=== PATIENT | female | born 1980 | race Caucasian/White ===

== ENCOUNTER → 2017-11-25 | Outpatient (CLI) | payer BC ==
[~2017-11-25] MED LIST: CLON.5 PO; EFFE150C PO; HYDR-3288 PO; LAMO150 PO; METR-1 PO
[2017-11-25 11:28] LABS: AUTOMATED NEUTROPHIL # 9.1 TH/MM3 (1.8-7.7); BASOPHIL % 0.2 % (0.0-2.0); EOSINOPHIL # 0.3 TH/MM3 (0-0.4); HEMATOCRIT 39.2 % (35.0-46.0); HEMOGLOBIN 12.8 GM/DL (11.6-15.3); LYMPH % 31.8 % (9.0-44.0); LYMPHOCYTE # 4.7 TH/MM3 (1.0-4.8); MEAN CELL VOLUME 86.3 FL (80.0-100.0); MEAN CORPUSCULAR HEMOGLOBIN 28.2 PG (27.0-34.0); MEAN CORPUSCULAR HGB CONC 32.7 % (32.0-36.0); MEAN PLATELET VOLUME 6.6 FL (7.0-11.0); MONO % 4.7 % (0.0-8.0); MONOCYTE # 0.7 TH/MM3 (0-0.9); NEUT % 61.3 % (16.0-70.0); PLATELET COUNT 438 TH/MM3 (150-450); RED BLOOD COUNT 4.54 MIL/MM3 (4.00-5.30); RED CELL DISTRIBUTION WIDTH 14.1 % (11.6-17.2); WHITE BLOOD COUNT 14.9 TH/MM3 (4.0-11.0)
[2017-11-25 11:37] LABS: BILIRUBIN, URINE NEG (NEG); BLOOD, URINE TRACE (NEG); GLUCOSE,URINE NEG (NEG); KETONE, URINE TRACE mg/dL (NEG); MUCUS URINE FEW /lpf (OCC); NITRITE,URINE NEG (NEG); PH, URINE 6.5 (5.0-8.5); SQUAMOUS EPITHELIAL CELL URINE 21 /hpf (0-5); URINE COLOR YELLOW (YELLW/STRAW); URINE LEUKOCYTE ESTERASE TRACE (NEG)
[2017-11-25 11:44] LABS: BACTERIA, URINE OCC /hpf
[2017-11-25 12:11] LABS: BICARBONATE 27.4 MEQ/L (21.0-32.0)
== END ==
LOC: CPRE 10:42
PROVIDERS: ATTEND Obstetrics & Gynecology
DX: Z01.812 Encounter for preprocedural laboratory examination (principal); R10.2 Pelvic and perineal pain; N80.9 Endometriosis, unspecified
CPT/HCPCS: 36415; 80051; 81001; 85025

== ENCOUNTER → 2017-11-30 | Day surgery (SDC) | payer BC ==
[~2017-11-30] VITALS: Ht 172.7 cm; Wt 74.5 kg
[~2017-11-30] MED LIST changes: +*LABETALOL HCL 100 MG/20 ML VIAL PERIprocedural Use ONLY ONE; +*morphine SULFATE 8 MG/ML PERIprocedure ONLY ONE; +ACETAMINOPHEN 1000 MG/100 ML 100 ML IV ONE; +APREPITANT 40 MG CAP ONE; +CHLORHEXIDINE GLUCONATE 2 % 1 PACK (2 CLOTHS) TOPICAL PRN; +DEXAMETHASONE SOD PHOS 4 MG/ML VIAL IV ONE; +DO NOT ADM ANY ANTICOAGULANT DRUGS PRN; +FAMOTIDINE 20 MG/2 ML VIAL ONE; +GLYCOPYRROLATE 1 MG/5 ML SYRINGE IV PUSH ONE; +HYDROmorphone HCL PF 2 MG/ML VIAL IV PUSH PRN; +IBUPROFEN 600 MG TAB PO PRN; +INSULIN HUMAN REGULAR 1,000 UNITS/10 ML VIAL SQ PRN; +KETOROLAC TROMETHAMINE 30 MG/ML (IVP) VIAL IV PUSH ONE; +KETOROLAC TROMETHAMINE 30 MG/ML (IVP) VIAL IVP PRN; +LACTATED RINGER'S 1000 ML INJ 1,000 ML IV SCH; +LACTATED RINGER'S 1000 ML IV PRN; +LORazepam 0.5 MG TAB PO PRN; +METOPROLOL TARTRATE 25 MG TAB PO PRN; -METR-1 PO; +MIDAZOLAM HCL 2 MG/2 ML VIAL ONE; +NEOSTIGMINE 5 MG/5 ML SYRINGE IV PUSH ONE; +ONDANSETRON HCL 4 MG/2 ML VIAL IV ONE; +ONDANSETRON HCL 4 MG/2 ML VIAL ONE; +PHENYLEPH/NS 1000 MCG/10 ML SYR IV ONE; +POVIDONE IODINE 5% (ANTISEPSIS KIT) 4 APPLICATIONS EACH NARE PRN; +PROMETHAZINE INJ 25 MG/ML VIAL IM PRN; +PROPOFOL 200 MG/20 ML AMP IV ONE; +ROCURONIUM INJ 50 MG/5 ML SYRINGE IV PUSH ONE; +SODIUM CHLORID 0.9% 500 ML IV PRN; +SODIUM CHLORIDE 0.9% 10 ML VIAL IV ONE; +SODIUM CHLORIDE 0.9% FLUSH 10 ML FLUSH IV FLUSH PRN; +SODIUM CHLORIDE 0.9% FLUSH 10 ML FLUSH IV FLUSH SCH; +ceFAZolin 2 GM/DEX PREMIX 50 ML IV SCH; +diphenhydrAMINE HCL 25 MG CAP PO PRN; +oxyCODONE/ACETAMINOPHEN 5 MG/325 MG TAB PO PRN
--- NOTE | 2017-11-30 10:33 | MP ---
cc: Scooby Maria MD DATE OF OPERATION: 11/30/2017 DATE OF PROCEDURE: 11/30/2017. PREOPERATIVE DIAGNOSES: The patient with chronic pelvic pain, dysmenorrhea, history of endometriosis. PROCEDURE PERFORMED: Operative laparoscopy with robotic-assisted total laparoscopic hysterectomy, bilateral salpingectomy, left oophorectomy, lysis of adhesions. POSTOPERATIVE DIAGNOSIS. Chronic pelvic pain, dysmenorrhea, history of endometriosis. SURGEON: Scooby Maria MD ANESTHESIA: General by endotracheal intubation. ESTIMATED BLOOD LOSS: Less than 50 mL. DRAINS: Ward to gravity. OPERATIVE FINDINGS: The patient had a normal-sized uterus that was mobile. There was evidence of peritoneal implants over the anterior peritoneal surface and in the cul-de-sac and under the left uterosacral ligament. The left ovary was adherent to the sidewall. The right ovary was normal in size, shape and appearance and free and devoid of any surface lesions. INDICATIONS FOR PROCEDURE: The patient with chronic debilitating pelvic pain secondary to endometriosis, failed conservative management. After discussion of therapeutic options, the patient elected for hysterectomy, also intraoperative evaluation of the left ovary. The patient's pain is predominantly on the left side and the patient elected to have her left ovary removed at the time of her procedure. The patient received Ancef 2 grams prophylactically. PROCEDURE DESCRIPTION: The patient was taken to the operating room under stable condition, underwent general anesthesia with endotracheal intubation. She was carefully positioned in dorsal lithotomy position using Primitivo stirrups on the lower extremities. She had sequentials placed for VTE prophylaxis. She was prepped and draped. Timeout was conducted and agreed on by all present in the room. A Ward catheter was inserted by sterile technique. The patient was then examined. The cervix was small. A medium VCare device was utilized and inserted through the cervical os without difficulty. The cervix was dilated to accommodate the VCare without complication or perforation. After securing the VCare, all instruments were removed and gloves were changed. The abdomen was examined. The patient had a large tattoo below the umbilicus extending to the pubic symphysis and to each right and left flank. Otherwise, no discernible pathology or lesions were noted. The umbilical port site was chosen first injecting with 0.25% plain Marcaine and then using a #5 trocar placed through a small incision with direct entry into the peritoneal cavity without complication. Insufflation of CO2 was conducted at low pressure and then the patient was placed in Trendelenburg positioning to visualize the pelvic anatomy. The laparoscopic ports were placed using 8 mm da Jacob ports, placing them strategically to avoid interruption of the tattoo. These were placed under direct vision, again injecting the incision site with 0.25% plain Marcaine. The umbilical port was then traded to a #12 camera port. The da Jacob patient's cart was side-docked with the #2 arm on the left and the #1 and #3 on the right. Monopolar scissors were attached to two and a bipolar fenestrated grasper and a ProGrasp were placed in the #1 and #3 respectively. Good articulation was noted. There were no collisions. Attention was then directed to the surgeon's cart where visualization of the pelvic anatomy was done. After confirming abnormalities of the left ovary and cul-de-sac, decision was to proceed with removal of the left tube and ovary. The round ligament was divided on the left, allowing dissection of the retroperitoneal space and then opening the broad ligament to the contralateral side over the bladder reflection and then laterally to evaluate the infundibulopelvic vessels. The ureter was easily visualized and skeletonized out of the operative field. The infundibulopelvic vessels were then secured hemostatically. Pedicle was cut and then dissection of the uterine artery and vein on the left side was accomplished without difficulty. Good hemostasis was secured. After securing the pedicle the contralateral side was then dissected and then decision was to leave the right ovary. The fallopian tube was removed on the right, cauterizing the mesentery appropriately to control any bleeding and then this allowed removal of the fallopian tube intact with the uterus. The uteroovarian pedicle was skeletonized, ligated opening the broad ligament leaf posteriorly and anteriorly, identifying the uterine artery and vein on the right was accomplished without difficulty and then the pedicle secured and made hemostatic with bipolar energy. Once the vessels were secured, a colpotomy incision was made posteriorly allowing removal of the cervix with the uterus after completing the circumferential colpotomy incision. Good result was noted. No active bleeding or hematoma was incurred. The uterus was then retrieved and removed through the vaginal opening by the hr assistant and this included both fallopian tubes, left ovary and cervix with the uterus. The vaginal cuff was then closed with a number 1 Stratafix suture, which was introduced through the vaginal opening. The #2 arm was traded to a Miguel-Cut suture needle concrete mixer truck driver and then closure of the cuff was accomplished without complication with good integrity demonstrated by the hr assistant after placing a sponge stick vaginally and providing pressure in a cephalad direction. Once this was complete, the suture needle was trimmed flush with the peritoneum and the suture needle was secured. In addition to placement of the #1 Stratafix suture, a 2-0 Vicryl suture was introduced, securing the right ovary to the sidewall. The ovary had a very prominent pedicle and concerns for torsion were noted. The ovary was secured to the round ligament with a simple [id number] suture of the 2-0 Vicryl with good result. No bleeding, no hematoma was incurred. After trimming the suture ends and securing the needle, observation of the dissection sites were dry and at this point, the da Jacob patient's cart was undocked. Straight laparoscopy was used to retrieve the suture needles and then irrigation of the pelvis was accomplished without difficulty. Copious irrigation was used to clean the pelvis. Observation off pressure revealed no active bleeding or hematoma. Both ureters were visualized throughout and peristalsing normally, draining clear urine into the Ward bag. After completion of the procedure, the umbilical port site was closed using a CrossBow with a #1 Vicryl suture, closing the fascia with good integrity. At the completion of the case, the pneumoperitoneum was decompressed under direct vision. The trocars were all removed without complication. Additional 0.25% plain Marcaine was injected into all incision sites for postoperative pain management. A 4-0 Monocryl suture was used to close the skin incisions with subcuticular method and then Steri-Strips and Band-Aids were placed over the incision. At the completion of the case, final counts were correct. The patient was stable. She was taken to the recovery room on room air. MD RICH Brian/NILES , 10:00 AM , 10:31 AM
[2017-11-30 11:45] VITALS: BP 104/65; PULSE 98; RESP 16; TEMP 96.7; O2SAT 97
== END | disposition home or self-care (01) ==
LOC: HSDC 05:36 → EDUNIT# 07:30
PROVIDERS: ATTEND Obstetrics & Gynecology
DX: N80.0 Endometriosis of uterus (principal); N94.6 Dysmenorrhea, unspecified; N83.12 Corpus luteum cyst of left ovary; N83.8 Other noninflammatory disorders of ovary, fallopian tube and broad ligament; R10.2 Pelvic and perineal pain; G89.29 Other chronic pain
CPT/HCPCS: 00840; 58552; 88307; J0131; J0690; J1100; J1885; J2250; J2270; J2370; J2405; J2710; J3010; J7120; J8501

== ENCOUNTER 2017-12-03 06:40 | Inpatient (IN) | payer BC ==
[2017-12-03] VITALS (7 sets, daily range): BP systolic 96–137; BP diastolic 51–81; PULSE 90–115; RESP 17–20; TEMP 97.3–99.2; O2SAT 96–99
[~2017-12-03 06:40] MED LIST changes: -*LABETALOL HCL 100 MG/20 ML VIAL PERIprocedural Use ONLY ONE; -*morphine SULFATE 8 MG/ML PERIprocedure ONLY ONE; -ACETAMINOPHEN 1000 MG/100 ML 100 ML IV ONE; -APREPITANT 40 MG CAP ONE; -CHLORHEXIDINE GLUCONATE 2 % 1 PACK (2 CLOTHS) TOPICAL PRN; -DEXAMETHASONE SOD PHOS 4 MG/ML VIAL IV ONE; -DO NOT ADM ANY ANTICOAGULANT DRUGS PRN; -FAMOTIDINE 20 MG/2 ML VIAL ONE; -GLYCOPYRROLATE 1 MG/5 ML SYRINGE IV PUSH ONE; -HYDROmorphone HCL PF 2 MG/ML VIAL IV PUSH PRN; -IBUPROFEN 600 MG TAB PO PRN; -INSULIN HUMAN REGULAR 1,000 UNITS/10 ML VIAL SQ PRN; -KETOROLAC TROMETHAMINE 30 MG/ML (IVP) VIAL IV PUSH ONE; -KETOROLAC TROMETHAMINE 30 MG/ML (IVP) VIAL IVP PRN; -LACTATED RINGER'S 1000 ML INJ 1,000 ML IV SCH; -LACTATED RINGER'S 1000 ML IV PRN; -LORazepam 0.5 MG TAB PO PRN; -METOPROLOL TARTRATE 25 MG TAB PO PRN; -MIDAZOLAM HCL 2 MG/2 ML VIAL ONE; -NEOSTIGMINE 5 MG/5 ML SYRINGE IV PUSH ONE; -ONDANSETRON HCL 4 MG/2 ML VIAL IV ONE; -ONDANSETRON HCL 4 MG/2 ML VIAL ONE; -PHENYLEPH/NS 1000 MCG/10 ML SYR IV ONE; -POVIDONE IODINE 5% (ANTISEPSIS KIT) 4 APPLICATIONS EACH NARE PRN; -PROMETHAZINE INJ 25 MG/ML VIAL IM PRN; -PROPOFOL 200 MG/20 ML AMP IV ONE; -ROCURONIUM INJ 50 MG/5 ML SYRINGE IV PUSH ONE; -SODIUM CHLORID 0.9% 500 ML IV PRN; -SODIUM CHLORIDE 0.9% 10 ML VIAL IV ONE; -SODIUM CHLORIDE 0.9% FLUSH 10 ML FLUSH IV FLUSH PRN; -SODIUM CHLORIDE 0.9% FLUSH 10 ML FLUSH IV FLUSH SCH; -ceFAZolin 2 GM/DEX PREMIX 50 ML IV SCH; -diphenhydrAMINE HCL 25 MG CAP PO PRN; -oxyCODONE/ACETAMINOPHEN 5 MG/325 MG TAB PO PRN
[2017-12-03] MEDS ORDERED: IOHEXOL 350 MG/ML 10 ML VIAL (for RAD DIAG) IVCONTRAST ONE (06:41)
[2017-12-03] MEDS ORDERED: SODIUM CHLOR 0.9% 1000 ML INJ 1,000 ML IV SCH (07:09)
--- NOTE | 2017-12-03 07:14 | PD ---
HPI Chief Complaint: Pain: Acute or Chronic Time Seen by Provider: 06:54 Travel History International Travel<30 days: No Contact w/Intl Traveler<30days: No Traveled to known affect area: No History of Present Illness HPI The patient is a 37-year-old female who presents to the emergency department for lower abdominal pain that radiates to the back. The patient is status post partial hysterectomy removal of her cervix, uterus, fallopian tube, and left ovary by Dr. Maria last Tuesday. The patient states she developed lower abdominal pain that radiates to the back and upper abdomen last night at midnight. The patient called the on-call physician who referred her to the emergency department for laboratory evaluation and imaging. She does note subjective fever at home with chills and sweats. She does note some postoperative vaginal spotting, which she was told would be normal after the surgery. The patient had a laparoscopic procedure performed and also states she has stitches within the vagina. Symptoms are moderate. There are no current alleviating factors. She does note mild nausea without any vomiting. She does complain of mild discomfort with urination but denies any actual dysuria or hematuria. PFSH Past Medical History Cancer: No Cardiovascular Problems: No Diabetes: No Endocrine: No Genitourinary: No Hepatitis: No Hiatal Hernia: No Immune Disorder: No Musculoskeletal: No Neurologic: No Psychiatric: Yes (BIPOLAR) Reproductive: Yes Respiratory: No Thyroid Disease: No ?: Not Past Surgical History Abdominal Surgery: Yes AICD: No Gynecologic Surgery: Yes Hysterectomy: Yes Joint Replacement: No Pacemaker: No Other Surgery: Yes Social History Alcohol Use: Yes Tobacco Use: Yes Substance Use: No Allergies-Medications (Allergen,Severity, Reaction): Coded Allergies: No Known Allergies (Unverified , 12/03/17) Reported Meds & Prescriptions Reported Meds & Active Scripts Active [place] (Hydrocodone-Acetaminophen) 7.5-325 mg Tab 1 Tab PO Q6H PRN 7 Days Reported Klonopin (Clonazepam) 0.5 Mg Tab 0.5 Mg PO DAILY Lamictal (Lamotrigine) 150 Mg Tab 150 Mg PO DAILY Effexor XR 24 HR (Venlafaxine HCl) 150 Mg Cap 150 Mg PO DAILY Review of Systems Except as stated in HPI: all other systems reviewed are Neg General / Constitutional: Positive: Fever, Chills Cardiovascular: No: Chest Pain or Discomfort Respiratory: No: Shortness of Breath Gastrointestinal: Positive: Nausea, Abdominal Pain, No: Vomiting, Diarrhea Genitourinary: Positive: Pelvic Pain, Vaginal Bleeding (Spotting), No: Urgency , Frequency, Dysuria, Discharge Physical Exam Narrative GENERAL: Awake, alert, pleasant 37-year-old female who appears her stated age and is in no acute respiratory distress. SKIN: Focused skin assessment warm/dry. Tattoo noted over the anterior aspect of the abdomen. HEAD: Atraumatic. Normocephalic. EYES: Pupils equal and round. No scleral icterus. No injection or drainage. ENT: No nasal bleeding or discharge. Mucous membranes pink and moist. NECK: Trachea midline. No JVD. CARDIOVASCULAR: Regular, tachycardic with a heart rate of 115. RESPIRATORY: No accessory muscle use. Clear to auscultation. Breath sounds equal bilaterally. GASTROINTESTINAL: Abdomen soft, diffuse tenderness with mild guarding. No rigidity. 4 laparoscopic incisions noted with Steri-Strips in place. Back: Mild bilateral CVA tenderness. MUSCULOSKELETAL: No obvious deformities. No clubbing. No cyanosis. No edema. NEUROLOGICAL: Awake and alert. No obvious cranial nerve deficits. Motor grossly within normal limits. Normal speech. PSYCHIATRIC: Appropriate mood and affect; insight and judgment normal. Data Data Last Documented VS Vital Signs Date Time Temp Pulse Resp B/P (MAP) Pulse Ox O2 Delivery O2 Flow Rate FiO2 12/03/17 07:41 99 Room Air 12/03/17 07:41 98 18 127/62 (83) 12/03/17 06:43 99.2 Orders Orders Complete Blood Count With Diff (12/03/17 07:09) Comprehensive Metabolic Panel (12/03/17 07:09) Lactic Acid (12/03/17 07:09) Prothrombin Time / Inr (Pt) (12/03/17 07:09) Act Partial Throm Time (Ptt) (12/03/17 07:09) Urinalysis - C+S If Indicated (12/03/17 07:09) Ct Abd/Pel W Iv Contrast(Rout) (12/03/17 07:09) Iv Access Insert/Monitor (12/03/17 07:09) Ecg Monitoring (12/03/17 07:09) Oximetry (12/03/17 07:09) Morphine Inj (Morphine Inj) (12/03/17 07:15) Sodium Chlor 0.9% 1000 Ml Inj (Ns 1000 M (12/03/17 07:09) Sodium Chloride 0.9% Flush (Ns Flush) (12/03/17 07:15) Ondansetron Odt (Zofran Odt) (12/03/17 07:15) Type And Screen (12/03/17 07:09) Iohexol 350 Inj (Omnipaque 350 Inj) (12/03/17 06:41) Piperacil-Tazo 4.5 Gm Premix (Zosyn 4.5 (12/03/17 08:45) Blood Culture (12/03/17 08:34) Sodium Chlor 0.9% 1000 Ml Inj (Ns 1000 M (12/03/17 08:45) Sodium Chlor 0.9% 1000 Ml Inj (Ns 1000 M (12/03/17 08:45) Ketorolac Inj (Toradol Inj) (12/03/17 08:45) Morphine Inj (Morphine Inj) (12/03/17 08:45) Labs Laboratory Tests Test 12/03/17 07:25 White Blood Count 16.3 TH/MM3 Red Blood Count 3.91 MIL/MM3 Hemoglobin 11.0 GM/DL Hematocrit 33.8 % Mean Corpuscular Volume 86.5 FL Mean Corpuscular Hemoglobin 28.1 PG Mean Corpuscular Hemoglobin Concent 32.5 % Red Cell Distribution Width 14.1 % Platelet Count 353 TH/MM3 Mean Platelet Volume 7.2 FL Neutrophils (%) (Auto) 86.0 % Lymphocytes (%) (Auto) 8.0 % Monocytes (%) (Auto) 5.4 % Eosinophils (%) (Auto) 0.5 % Basophils (%) (Auto) 0.1 % Neutrophils # (Auto) 14.0 TH/MM3 Lymphocytes # (Auto) 1.3 TH/MM3 Monocytes # (Auto) 0.9 TH/MM3 Eosinophils # (Auto) 0.1 TH/MM3 Basophils # (Auto) 0.0 TH/MM3 CBC Comment DIFF FINAL Differential Comment Prothrombin Time 10.0 SEC Prothromb Time International Ratio 1.0 RATIO Activated Partial Thromboplast Time 32.4 SEC Urine Color YELLOW Urine Turbidity CLEAR Urine pH 6.5 Urine Specific [place] 1.020 Urine Protein TRACE mg/dL Urine Glucose (UA) NEG mg/dL Urine Ketones NEG mg/dL Urine Occult Blood TRACE Urine Nitrite NEG Urine Bilirubin NEG Urine Urobilinogen 4.0 MG/DL Urine Leukocyte Esterase NEG Urine RBC 6 /hpf Urine WBC 1 /hpf Urine Squamous Epithelial Cells 2 /hpf Urine Mucus FEW /lpf Microscopic Urinalysis Comment CULT NOT INDICATED Blood Urea Nitrogen 8 MG/DL Creatinine 0.58 MG/DL Random Glucose 96 MG/DL Total Protein 7.0 GM/DL Albumin 3.0 GM/DL Calcium Level 8.4 MG/DL Alkaline Phosphatase 87 U/L Aspartate Amino Transf (AST/SGOT) 15 U/L Alanine Aminotransferase (ALT/SGPT) 33 U/L Total Bilirubin 0.7 MG/DL Sodium Level 137 MEQ/L Potassium Level 3.6 MEQ/L Chloride Level 101 MEQ/L Carbon Dioxide Level 25.2 MEQ/L Anion Gap 11 MEQ/L Estimat Glomerular Filtration Rate 118 ML/MIN Lactic Acid Level 0.5 mmol/L MDM Medical Decision Making Medical Screen Exam Complete: Yes Emergency Medical Condition: Yes Medical Record Reviewed: Yes Interpretation(s) Laboratory Tests Test 12/03/17 07:25 White Blood Count 16.3 TH/MM3 Red Blood Count 3.91 MIL/MM3 Hemoglobin 11.0 GM/DL Hematocrit 33.8 % Mean Corpuscular Volume 86.5 FL Mean Corpuscular Hemoglobin 28.1 PG Mean Corpuscular Hemoglobin Concent 32.5 % Red Cell Distribution Width 14.1 % Platelet Count 353 TH/MM3 Mean Platelet Volume 7.2 FL Neutrophils (%) (Auto) 86.0 % Lymphocytes (%) (Auto) 8.0 % Monocytes (%) (Auto) 5.4 % Eosinophils (%) (Auto) 0.5 % Basophils (%) (Auto) 0.1 % Neutrophils # (Auto) 14.0 TH/MM3 Lymphocytes # (Auto) 1.3 TH/MM3 Monocytes # (Auto) 0.9 TH/MM3 Eosinophils # (Auto) 0.1 TH/MM3 Basophils # (Auto) 0.0 TH/MM3 CBC Comment DIFF FINAL Differential Comment Prothrombin Time 10.0 SEC Prothromb Time International Ratio 1.0 RATIO Activated Partial Thromboplast Time 32.4 SEC Urine Color YELLOW Urine Turbidity CLEAR Urine pH 6.5 Urine Specific [place] 1.020 Urine Protein TRACE mg/dL Urine Glucose (UA) NEG mg/dL Urine Ketones NEG mg/dL Urine Occult Blood TRACE Urine Nitrite NEG Urine Bilirubin NEG Urine Urobilinogen 4.0 MG/DL Urine Leukocyte Esterase NEG Urine RBC 6 /hpf Urine WBC 1 /hpf Urine Squamous Epithelial Cells 2 /hpf Urine Mucus FEW /lpf Microscopic Urinalysis Comment CULT NOT INDICATED Blood Urea Nitrogen 8 MG/DL Creatinine 0.58 MG/DL Random Glucose 96 MG/DL Total Protein 7.0 GM/DL Albumin 3.0 GM/DL Calcium Level 8.4 MG/DL Alkaline Phosphatase 87 U/L Aspartate Amino Transf (AST/SGOT) 15 U/L Alanine Aminotransferase (ALT/SGPT) 33 U/L Total Bilirubin 0.7 MG/DL Sodium Level 137 MEQ/L Potassium Level 3.6 MEQ/L Chloride Level 101 MEQ/L Carbon Dioxide Level 25.2 MEQ/L Anion Gap 11 MEQ/L Estimat Glomerular Filtration Rate 118 ML/MIN Lactic Acid Level 0.5 mmol/L Last Impressions Abdomen/Pelvis CT 12/03/17 0709 Signed Impressions: CONCLUSION: 1. Scattered foci of free air in the lower abdomen and pelvis not unexpected g iven the recent hysterectomy. 2. There is moderate stranding, a small amount of free fluid as well as a rim- enhancing fluid collection in the right hemipelvis measuring up to 4.5 cm yenni rning for developing abscess. 3. Reactive bowel wall thickening is seen involving a loop of ileum in the rig ht hemipelvis. There is also mild circumferential bladder wall thickening. Differential Diagnosis Differential diagnosis includes postoperative hematoma, seroma, abscess, UTI, postoperative bleeding, symptomatic anemia, postoperative infection. Narrative Course IV was established, labs are drawn and sent, the patient was placed on cardiac telemetry monitoring and continuous pulse oximetry monitoring. The patient was administer morphine, Zofran, and IV fluids. UA was ordered. CT of the abdomen and pelvis with IV contrast was ordered. The patient's white count is elevated at 16.3. Hemoglobin was 11.0. UA reveals 6 RBCs, otherwise unremarkable. Lactic acid is normal at 0.5. CT the abdomen and pelvis reveals possible early postoperative abscess measuring 4.5 cm with some stranding of the surrounding area. Therefore, the patient was covered with Zosyn 4.5 g intravenously. The patient was reevaluated, her pain had improved to a 5/10. Therefore, the patient was administered Toradol 30 mg intravenously and morphine 2 mg intravenously. A call was placed to Dr. Maria, I discussed the patient with the on-call physician, Dr. Villagran who agrees with IV antibiotics and admission. Sepsis Criteria SIRS Criteria (2 or more): Heart rate over 90, WBC > 74907, < 4000 or > 10% bands Sepsis Criteria (SIRS+source): Infect source susp/known Criteria Outcome: Meets sepsis criteria Physician Communication Physician Communication I discussed the patient with Dr. Villagran who agrees with admission. Diagnosis Primary Impression: Postoperative abscess Qualified Codes: T81.4XXA - Infection following a procedure, initial encounter Additional Impression: Sepsis Qualified Codes: A41.9 - Sepsis, unspecified organism Admitting Information Admitting Physician Requests: Admit Condition: Stable Brian Bradley MD Dec 03, 2017 07:14
[2017-12-03] MEDS ORDERED: ONDANSETRON ODT 4 MG TAB PO ONE (07:15)
[2017-12-03] MEDS ORDERED: MORPHINE SULFATE 4 MG/ML INJ IV PUSH ONE ×2 (07:15→09:30)
[2017-12-03] MEDS ORDERED: SODIUM CHLORIDE 0.9% FLUSH 10 ML FLUSH IV FLUSH PRN ×2 (07:15→10:45)
[2017-12-03 07:52] LABS: BASOPHIL % 0.1 % (0.0-2.0); EOSINOPHIL # 0.1 TH/MM3 (0-0.4); EOSINOPHIL % 0.5 % (0.0-4.0); HEMATOCRIT 33.8 % (35.0-46.0); LYMPHOCYTE # 1.3 TH/MM3 (1.0-4.8); MEAN CELL VOLUME 86.5 FL (80.0-100.0); MEAN CORPUSCULAR HEMOGLOBIN 28.1 PG (27.0-34.0); MEAN CORPUSCULAR HGB CONC 32.5 % (32.0-36.0); MEAN PLATELET VOLUME 7.2 FL (7.0-11.0); MONO % 5.4 % (0.0-8.0); MONOCYTE # 0.9 TH/MM3 (0-0.9); PLATELET COUNT 353 TH/MM3 (150-450); RED BLOOD COUNT 3.91 MIL/MM3 (4.00-5.30); RED CELL DISTRIBUTION WIDTH 14.1 % (11.6-17.2); WHITE BLOOD COUNT 16.3 TH/MM3 (4.0-11.0)
[2017-12-03 08:03] LABS: BILIRUBIN, URINE NEG (NEG); BLOOD, URINE TRACE (NEG); GLUCOSE,URINE NEG (NEG); KETONE, URINE NEG (NEG); MUCUS URINE FEW /lpf (OCC); NITRITE,URINE NEG (NEG); PH, URINE 6.5 (5.0-8.5); SQUAMOUS EPITHELIAL CELL URINE 2 /hpf (0-5); URINE COLOR YELLOW (YELLW/STRAW); URINE LEUKOCYTE ESTERASE NEG (NEG)
[2017-12-03 08:06] LABS: ALT (GPT) 33 U/L (10-53); AST (GOT) 15 U/L (15-37); BICARBONATE 25.2 MEQ/L (21.0-32.0); BLOOD UREA NITROGEN 8 MG/DL (7-18); CALCIUM 8.4 MG/DL (8.5-10.1); CHLORIDE 101 MEQ/L (98-107); CREATININE 0.58 MG/DL (0.50-1.00); GLOMERULAR FILTRATION RATE 118 ML/MIN (>89); GLUCOSE,RANDOM 96 MG/DL (74-106); SODIUM (NA) 137 MEQ/L (136-145)
[2017-12-03 08:08] LABS: ALKALINE PHOSPHATASE 87 U/L (45-117); TOTAL BILIRUBIN ADULT 0.7 MG/DL (0.2-1.0)
--- NOTE | 2017-12-03 08:30 | RADRPT ---
EXAM DATE: 12/03/2017 8:19 AM EDT AGE/SEX: 37 years / Female INDICATIONS: Postoperative abdominal pain that radiates to the back; hysterectomy three days ago. CLINICAL DATA: This is the patient's initial encounter. Patient reports that signs and symptoms have been present for 3 days and indicates a pain score of 8/10. MEDICAL/SURGICAL HISTORY: . Bipolar disorder. Hysterectomy. ORAL CONTRAST: No oral contrast ingested. RADIATION DOSE: 7.22 CTDI (mGy) COMPARISON: No prior exams available for comparison. TECHNIQUE: Multiple contiguous axial images were obtained through the abdomen and pelvis following b olus infusion of 96 ml Omnipaque 350 (iohexol) nonionic water-soluble contrast as a single exam dos e. No oral contrast ingested. Using automated exposure control and adjustment of the mA and/or kV ac cording to patient size, the radiation dose was kept as low as reasonably achievable to obtain optima l diagnostic quality images. FINDINGS: Lung bases are clear. Osseous structures are intact. No pleural or pericardial effusions are seen. Sp arielle, liver, gallbladder, kidneys, adrenal glands, pancreas, stomach, large bowel are unremarkable. T here is a small fat-containing umbilical hernia. The appendix is normal. Within the pelvis there is a small amount of free air seen with a few scattered locules of air noted. There is mild circumferential bowel wall thickening involving the ileum right hemipelvis, and there is a small amount of free fluid as well as a 4.5 x 3.8 cm rim-enhancing fluid collection within the p makeda to the right of midline on image 75. CONCLUSION: 1. Scattered foci of free air in the lower abdomen and pelvis not unexpected given the recent hyster ectomy. 2. There is moderate stranding, a small amount of free fluid as well as a rim-enhancing fluid collec tion in the right hemipelvis measuring up to 4.5 cm concerning for developing abscess. 3. Reactive bowel wall thickening is seen involving a loop of ileum in the right hemipelvis. There i s also mild circumferential bladder wall thickening. Electronically signed by: Vidal Poole MD 12/03/2017 8:29 AM EDT
[2017-12-03] MEDS ORDERED: PIPERACIL-TAZO 4.5 GM PREMIX 100 ML IV ONE (08:45)
[2017-12-03] MEDS ORDERED: SODIUM CHLOR 0.9% 1000 ML INJ 1,000 ML IV ONE ×2 (08:45)
[2017-12-03] MEDS ORDERED: MORPHINE SULFATE 2 MG/ML SYRINGE IV PUSH ONE (08:45)
[2017-12-03] MEDS ORDERED: KETOROLAC TROMETHAMINE 30 MG/ML (IVP) VIAL IV PUSH ONE (08:45)
--- NOTE | 2017-12-03 10:30 | HHI.PR ---
Subjective Remarks 37 yo wf P0 POD 3 s/p robotic TLH LSO to ED with complaint of aaabdominal pain / and fever with sweats and chills work up in Echo suggests small abcess in RLQ has not yet moved bowels appetite OK voiding normally Objective Vital Signs Vital Signs Date Time Temp Pulse Resp B/P (MAP) Pulse Ox O2 Delivery O2 Flow Rate FiO2 12/03/17 09:34 99 17 137/78 (97) 99 Room Air 12/03/17 07:41 99 Room Air 12/03/17 07:41 98 18 127/62 (83) 99 Room Air 12/03/17 07:27 18 12/03/17 06:43 99.2 115 18 117/59 (78) 98 Result Diagram: 12/03/17 0725 12/03/17 0725 Objective Remarks Chest is clear, regular rate and rhythm. Abdomen is soft and diffusely tender without guarding Incisions clean and dry. no perineal bleeding Ext no CCE. A/P Assessment and Plan POD 3 small abcess suggested on CT will keep 48 hours on IV antibiotics and see if resolved without Lscope or IR supportive care Taylor Villagran MD Dec 03, 2017 10:30
[2017-12-03] MEDS ORDERED: diphenhydrAMINE HCL 25 MG CAP PO PRN (10:45)
[2017-12-03] MEDS: DOCUSATE SODIUM 100 MG CAP PO SCH ×2 (10:56→20:05)
[2017-12-03] MEDS: LACTATED RINGER'S 1000 ML INJ 1,000 ML IV SCH ×2 (10:57→16:23)
[2017-12-03] MEDS: oxyCODONE/ACETAMINOPHEN 5 MG/325 MG TAB PO PRN ×2 (13:55→20:57)
[2017-12-03] MEDS: ONDANSETRON ODT 4 MG TAB PO PRN ×2 (13:57→20:05)
[2017-12-03] MEDS: PIPERACIL-TAZO 4.5 GM PREMIX 100 ML IV SCH (16:23)
[2017-12-03] MEDS: SODIUM CHLORIDE 0.9% FLUSH 10 ML FLUSH IV FLUSH SCH (20:04)
[2017-12-03] MEDS ORDERED: ZOLPIDEM TARTRATE 5 MG TAB PO PRN (21:00)
[2017-12-04] VITALS: BP 114/61; PULSE 110; RESP 20; TEMP 98.6; O2SAT 99
[2017-12-04] MEDS: PIPERACIL-TAZO 4.5 GM PREMIX 100 ML IV SCH ×3 (00:04→16:32)
[2017-12-04] MEDS: LACTATED RINGER'S 1000 ML INJ 1,000 ML IV SCH ×3 (01:08→16:32)
[2017-12-04 07:27] LABS: AUTOMATED NEUTROPHIL # 16.2 TH/MM3 (1.8-7.7); BASOPHIL # 0.1 TH/MM3 (0-0.2); BASOPHIL % 0.3 % (0.0-2.0); EOSINOPHIL # 0.2 TH/MM3 (0-0.4); EOSINOPHIL % 0.9 % (0.0-4.0); HEMOGLOBIN 10.4 GM/DL (11.6-15.3); LYMPH % 9.8 % (9.0-44.0); LYMPHOCYTE # 1.9 TH/MM3 (1.0-4.8); MEAN CELL VOLUME 86.4 FL (80.0-100.0); MEAN CORPUSCULAR HGB CONC 33.6 % (32.0-36.0); MEAN PLATELET VOLUME 7.2 FL (7.0-11.0); MONO % 3.8 % (0.0-8.0); MONOCYTE # 0.7 TH/MM3 (0-0.9); NEUT % 85.2 % (16.0-70.0); PLATELET COUNT 323 TH/MM3 (150-450); RED BLOOD COUNT 3.59 MIL/MM3 (4.00-5.30); RED CELL DISTRIBUTION WIDTH 14.1 % (11.6-17.2)
[2017-12-04 08:00] VITALS: BP 127/68; PULSE 107; RESP 17; TEMP 98.1; O2SAT 96
[2017-12-04] MEDS: DOCUSATE SODIUM 100 MG CAP PO SCH ×2 (08:13→19:48)
[2017-12-04] MEDS: SODIUM CHLORIDE 0.9% FLUSH 10 ML FLUSH IV FLUSH SCH ×2 (08:13→19:48)
[2017-12-04] MEDS: ONDANSETRON ODT 4 MG TAB PO PRN ×2 (08:13→17:21)
[2017-12-04] MEDS: ACETAMINOPHEN/HYDROcodone 325 MG/5 MG TAB PO PRN ×2 (09:01→17:21)
[2017-12-04 10:33] VITALS: BP 118/55; PULSE 91; RESP 16; TEMP 99; O2SAT 98
--- NOTE | 2017-12-04 13:30 | HHI.PR ---
Subjective Remarks POD 4 s/p robotic TLH and LSO CT suggestive of small right lower quadrant abcess afebrile since admission on Zosyn WBC still elevated pain is diminished; head filter press tender in RLQ complaining of constipation concerned about missing daily dose of klonopin Objective Vital Signs Vital Signs Date Time Temp Pulse Resp B/P (MAP) Pulse Ox O2 Delivery O2 Flow Rate FiO2 12/04/17 10:33 99.0 91 16 118/55 (76) 98 12/04/17 10:04 20 12/04/17 08:00 98.1 107 17 127/68 (87) 96 12/04/17 00:00 98.6 110 20 114/61 (78) 99 12/03/17 20:00 98.7 112 20 96/51 (66) 98 12/03/17 16:00 99.0 90 18 114/81 (92) 96 12/03/17 15:08 20 I/O 12/03/17 12/03/17 12/03/17 12/04/17 12/04/17 12/04/17 07:00 15:00 23:00 07:00 15:00 23:00 Intake Total 3100 ml 1000 ml Balance 3100 ml 1000 ml Intake IV Total 3100 ml 1000 ml # Voids 1 1 3 Result Diagram: 12/04/17 0657 12/03/17 0725 Objective Remarks Chest is clear, regular rate and rhythm. Abdomen is soft and diffusely tender without guarding; less than yesterday Incisions clean and dry. no perineal bleeding Ext no CCE. A/P Assessment and Plan POD 3 small abcess suggested on CT will keep 48 hours on IV antibiotics and see if resolved without Lscope or IR supportive care POD 4 Better needs imaging for interval change will order sonogram miralax order her 0.5 mg k[address]opin daily notify Dr. Maria of her admission Taylor Villagran MD Dec 04, 2017 13:30
[2017-12-04] MEDS: POLYETHYLENE GLYCOL 17 GM PKG PO SCH (13:45)
[2017-12-04] MEDS: clonazePAM 0.5 MG TAB PO SCH (13:45)
[2017-12-04 16:00] VITALS: BP 113/67; PULSE 97; RESP 16; TEMP 97.9; O2SAT 97
[2017-12-04] MEDS: metroNIDAZOLE 500 MG INJ 100 ML IV SCH (17:18)
[2017-12-04 20:26] VITALS: BP 110/75; PULSE 84; RESP 18; TEMP 98.7; O2SAT 96
[2017-12-05] MEDS: PIPERACIL-TAZO 4.5 GM PREMIX 100 ML IV SCH ×3 (00:08→16:22)
[2017-12-05] MEDS: LACTATED RINGER'S 1000 ML INJ 1,000 ML IV SCH ×2 (00:13→10:32)
[2017-12-05 00:28] VITALS: BP 118/68; PULSE 92; RESP 16; TEMP 98.3; O2SAT 98
[2017-12-05] MEDS: metroNIDAZOLE 500 MG INJ 100 ML IV SCH ×3 (01:38→16:22)
[2017-12-05] MEDS: ONDANSETRON ODT 4 MG TAB PO PRN ×2 (03:48→16:50)
[2017-12-05 08:00] VITALS: BP 122/76; PULSE 100; RESP 18; TEMP 97.9; O2SAT 97
[2017-12-05] MEDS: clonazePAM 0.5 MG TAB PO SCH (08:46)
[2017-12-05] MEDS: DOCUSATE SODIUM 100 MG CAP PO SCH (08:47)
[2017-12-05] MEDS: POLYETHYLENE GLYCOL 17 GM PKG PO SCH (08:47)
[2017-12-05] MEDS: SODIUM CHLORIDE 0.9% FLUSH 10 ML FLUSH IV FLUSH SCH (08:47)
[2017-12-05 08:54] LABS: AUTOMATED NEUTROPHIL # 11.1 TH/MM3 (1.8-7.7); BASOPHIL % 0.1 % (0.0-2.0); EOSINOPHIL # 0.2 TH/MM3 (0-0.4); EOSINOPHIL % 1.4 % (0.0-4.0); HEMATOCRIT 28.6 % (35.0-46.0); HEMOGLOBIN 9.6 GM/DL (11.6-15.3); LYMPH % 10.6 % (9.0-44.0); LYMPHOCYTE # 1.4 TH/MM3 (1.0-4.8); MEAN CELL VOLUME 85.5 FL (80.0-100.0); MEAN CORPUSCULAR HEMOGLOBIN 28.8 PG (27.0-34.0); MEAN CORPUSCULAR HGB CONC 33.7 % (32.0-36.0); MEAN PLATELET VOLUME 7.1 FL (7.0-11.0); MONO % 3.8 % (0.0-8.0); MONOCYTE # 0.5 TH/MM3 (0-0.9); NEUT % 84.1 % (16.0-70.0); PLATELET COUNT 327 TH/MM3 (150-450); RED BLOOD COUNT 3.34 MIL/MM3 (4.00-5.30); RED CELL DISTRIBUTION WIDTH 13.9 % (11.6-17.2); WHITE BLOOD COUNT 13.3 TH/MM3 (4.0-11.0)
--- NOTE | 2017-12-05 11:27 | RADRPT ---
EXAM DATE: 12/05/2017 11:05 AM EDT AGE/SEX: 37 years / Female INDICATIONS: Adnexal abscess post hysterectomy. CLINICAL DATA: This is the patient's initial encounter. Patient reports that signs and symptoms have been present for 2 days and indicates a pain score of 3/10. MEDICAL/SURGICAL HISTORY: . Endometriosis. Cholecystectomy. Hysterectomy 11/30/17. COMPARISON: [facility] – [place], CT ABDOMEN & PELVIS W CONTRAST, 12/03/2017. . MEASUREMENTS: Uterus:__Surgically removed 11/30/17 Endometrial Stripe:__N/A Right Ovary:__ 3.2 x 2.1 x 2.7 cm Left Ovary:__ N/A FINDINGS: Uterus: Surgically absent. Right Ovary: Within the right adnexa there is a fluid collection that measures 3.1 x 2.9 x 2.3 cm wh ich is stable to minimally smaller from the prior CT. The right ovary is normal. Left Ovary: Bowel obscures the left adnexa. Other: A trace amount of free fluid posteriorly within the midline. CONCLUSION: 1. 3.1 x 2.9 x 2.3 cm fluid collection within the right adnexa is stable to minimally smaller from t he prior CT. 2. Prior hysterectomy. Electronically signed by: Nikolai Hayes MD 12/05/2017 11:26 AM EDT
[2017-12-05 12:00] VITALS: BP 123/82; PULSE 101; RESP 18; TEMP 98.2; O2SAT 98
[2017-12-05] MEDS ORDERED: METR-1 PO (16:50)
--- NOTE | 2017-12-05 16:51 | HHI.DCPOC ---
Discharge Care Plan Your Health Problems Are: Abdominal pain Fever, temperature>100.4 Nausea and/or vomiting Vaginal bleeding Report Symptoms to Your Doctor -Temperature above 100.5 degrees -Redness, of incision or excessive or foul smelling drainage -Unusual pain or calf pain -Increased vaginal bleeding -Painful or difficulty urinating -Feelings of extreme sadness or anxiety after 2 weeks Goals to Promote Your Health * To prevent worsening of your condition and complications * To maintain your health at the optimal level Directions to Meet Your Goals Take your medications as prescribed Follow your dietary instruction Follow activity as directed Ensure plenty of rest for recovery Drink fluids for hydration Keep your appointments as scheduled Take your immunizations and boosters as scheduled If your symptoms worsen call your PCP, if no PCP go to Urgent Care Center or Emergency Room Smoking is Dangerous to Your Health. Avoid second hand smoke Call the 24-hour crisis hotline for domestic abuse at Scooby Maria MD Dec 05, 2017 16:51
[2017-12-05] MEDS: ACETAMINOPHEN/HYDROcodone 325 MG/5 MG TAB PO PRN (16:53)
--- NOTE | 2017-12-05 16:59 | HHI.PR ---
Subjective Remarks POD#5; readmitted with small pelvic abscess,right sided ;Doing well, pain is well controlled, eating well.Denies fever/chills Objective Vital Signs Vital Signs Date Time Temp Pulse Resp B/P (MAP) Pulse Ox O2 Delivery O2 Flow Rate FiO2 12/05/17 12:00 98.2 101 18 123/82 (96) 98 12/05/17 08:00 97.9 100 18 122/76 (91) 97 12/05/17 00:28 98.3 92 16 118/68 (85) 98 12/04/17 20:26 98.7 84 18 110/75 (87) 96 12/04/17 18:35 20 I/O 12/04/17 12/04/17 12/04/17 12/05/17 12/05/17 12/05/17 07:00 15:00 23:00 07:00 15:00 23:00 Intake Total 1000 ml 440 ml 1880 ml 1200 ml Balance 1000 ml 440 ml 1880 ml 1200 ml Intake Oral 440 ml 780 ml IV Total 1000 ml 1100 ml 1200 ml # Voids 3 6 4 # Bowel Movements 1 Result Diagram: 12/05/17 0806 12/03/17 0725 Objective Remarks Chest is clear, regular rate and rhythm. Abdomen is soft and diffusely tender without guarding; less than yesterday Incisions clean and dry. no perineal bleeding Ext no CCE. A/P Assessment and Plan POD#5; S/P robotic asst. TLH/LSO; RE-ADMITTED WITH RIGHT PELVIC ABSCESS, RESOLVING, afebrile, decreasing WBC, cultures are negative. Plan to discharge home on CIPRO 500 mg bid x 10 d,FLAGYL 500 MG tid X 5 d. will return to office this tuesday Scooby Maria MD Dec 05, 2017 16:59
== END 2017-12-05 19:03 | disposition home or self-care (01) | DRG 863 ==
LOC: NEPE 06:40 → NEDA 08:55 → INTOOBSV 08:55 → N07A 11:58 → OBSVTOIN 12-04 13:31
PROVIDERS: ADMIT Obstetrics & Gynecology; ATTEND Obstetrics & Gynecology
DX: T81.4XXA Infection following a procedure, initial encounter (principal); N73.0 Acute parametritis and pelvic cellulitis; F31.9 Bipolar disorder, unspecified; K59.00 Constipation, unspecified; Z72.0 Tobacco use; Z90.710 Acquired absence of both cervix and uterus
CPT/HCPCS: 74177; 76856; 80053; 81001; 83605; 85025; 85610; 85730; 86850; 86900; 86901; 87040; 96361; 96365; 96375; 96376; G0378; J1885; J2270; J2543; J7030; J7120; Q9967